=== PATIENT | female | born 1990 | race African-American/Black ===

== ENCOUNTER 2018-08-05 07:38 | Emergency (ER) | payer BC, MEDICAID ==
[~2018-08-05] VITALS: Ht 160 cm; Wt 65.0 kg
[~2018-08-05 07:38] MED LIST: UNK PAIN MED
[2018-08-05] MEDS ORDERED: ACETAMINOPHEN 325MG TABLET PO ONE (09:45)
[2018-08-05 10:29] LABS: CHLORIDE 106 mEq/L (98-107)
[2018-08-05 10:32] LABS: BASOPHILS % 0.2 % (0.0-2.0); EOSINOPHILS % 0.6 % (0.0-5.0); HEMATOCRIT. 33.7 % (36.0-48.0); HEMOGLOBIN. 10.6 g/dL (12.0-16.0); LYMPHOCYTES % 18.8 % (20.0-50.0); MEAN CORPUSCULAR HEMOGLOBIN 25.5 pg (28.0-32.0); MEAN CORPUSCULAR VOLUME 80.7 fL (81.0-99.0); MEAN PLATELET VOLUME 6.9 fl (7.4-10.4); MONOCYTES % 6.4 % (2.0-8.0); PLATELET 300 x1000/uL (130-400); RED BLOOD CELL COUNT 4.17 mill/uL (4.2-5.4); RED CELL DISTRIBUTION WIDTH 22.3 % (11.6-14.6)
[2018-08-05 10:53] LABS: B-HCG QUANTITATIVE 14408 mIU/mL (<3)
[2018-08-05 11:15] VITALS: BP 115/68
[2018-08-05 11:26] LABS: PLATELET ESTIMATE NORMAL
== END 2018-08-05 12:06 | disposition home or self-care (01) ==
LOC: ER 07:38
DX: O03.9 Complete or unspecified spontaneous abortion without complication (principal); O46.91 Antepartum hemorrhage, unspecified, first trimester; Z3A.08 8 weeks gestation of pregnancy
CPT/HCPCS: 36415; 76856; 81025; 84702; 86850; 86900; 99284